=== PATIENT | female | born 1960 | race Caucasian/White ===

== ENCOUNTER 2022-07-05 14:33 | Outpatient (REF) | payer MEDICARE, SELFPAY ==
[2022-07-11 20:42] LABS: HPV mRNA E6/E7 rflx Not Detected (Not Detected)
== END 2022-07-05 14:34 | disposition home or self-care (01) ==
LOC: HO.LNP 14:33
PROVIDERS: Visit Provider Advanced Practice Midwife
DX: Z01.419 Encounter for gynecological examination (general) (routine) without abnormal findings (principal); Z11.51 Encounter for screening for human papillomavirus (HPV)
CPT/HCPCS: 87624; 88142

== ENCOUNTER 2022-08-21 09:31 | Outpatient (REF) | payer MEDICARE, SELFPAY | END 2022-08-21 09:32 | disposition home or self-care (01) | LOC: HO.LNP 09:31 | PROVIDERS: PCP Internal Medicine Medical Oncology; Visit Provider Advanced Practice Midwife | DX: N84.1 Polyp of cervix uteri (principal) | CPT/HCPCS: 57500; 88305 ==

== ENCOUNTER 2023-05-04 13:46 | Outpatient (AMB) | payer MEDICARE, SELFPAY ==
--- NOTE | 2023-05-04 13:47 | A.OFFVIS_ITS ---
Intake Intake Visit Reasons: LDCT Allergies No Known Allergies Allergy (Verified 08/21/22 10:05) HPI LDCT HPI Details Initial visit for this 63 former smoker with a 35PYH. Patient has been smoking since age 12 for 49 years at 1/2-1ppd. She quit in 2021. Stopped vape 2 weeks ago. . Denies marijuana use. Denies second hand smoke exposure. Denies exposure to chemicals or substances like asbestos. . Denies known family history of lung cancer. Reports personal history of left Breast cancer recently diagnosed 03/2023 - plan is to do radiation. Denies chest CT in last year. . Denies recent travel outside the [place]. Denies recent respiratory illness or recent hospitalization for respiratory issues. Reports testing positive for COVID. 11/2021 Admits receiving COVID Vaccine. x 2. . Denies fever, chills, new/worsening cough, hemoptysis, hoarseness or dysphagia. Denies significant chest pain, significant dyspnea or unintentional weight loss. Patient Lung Cancer Screening Questionnaire reviewed with patient by provider. . Shared Decision Making Completed. Patient meets criteria. Discussed in detail with patient, the risk vs benefit of LDCT screening. Patient consents to proceed with scan. Discussed and encouraged continued smoking cessation. FORMERLY [facility], [facility] Medical History (Updated 05/04/23 @ 14:05 by Melyssa Douglas PA-C) Breast cancer, left (~2022) Colon polyp COPD (chronic obstructive pulmonary disease) Hyperlipidemia Multiple sclerosis Personal history of nicotine dependence Surgical History (Updated 05/04/23 @ 14:05 by Melyssa Douglas PA-C) History of cervical biopsy History of colonoscopy History of left breast biopsy History of tubal ligation History of umbilical hernia repair Family History Maternal Aunt Diabetes Family/Other Diabetes Paternal Aunt High blood pressure Social History (Updated 05/04/23 @ 13:53 by Melyssa Douglas PA-C) Alcohol intake: current Alcohol intake frequency: holidays/special occasions only Patient Tobacco Use Status: Former Tobacco user Quit Date: quit cigarettes 2021, quit vape 03/2023 Years Smoked: (former smoker - onset 12yo, 1/2-1ppd x 49yrs, 35pyh -quit 2021) e-Cigarette/Vaping Use: Former Use Sexual orientation: Straight/Heterosexual Gender identity: Female Assessment & Plan Assessment & Plan (1) Personal history of nicotine dependence: Comment: (former smoker - onset 12yo, 1/2-1ppd x 49yrs, 35pyh - quit 2021) Code(s): Z87.891 - Personal history of nicotine dependence Plan: - SDM visit completed today in office. - Patient meets criteria for LDCT for lung cancer screening purposes and is asymptomatic. - Smoking cessation counseling offered. Patients can always call [phone]. - Will arrange for a LDCT scan of the chest for screening purposes at [facility]. - Risks, benefits, and alternatives were discussed in detail and the patient agrees to proceed. - Risks discussed include but are not limited to: radiation exposure, anxiety during testing and while awaiting results, false negatives, false positives and possibility of additional intervention such as further imaging or surgical procedures for benign disease. - Benefits are obviously detection of lung cancer at an early stage which can lead to improved outcomes. - Discussed the importance of screening program compliance with adherence to yearly LDCT scan as scheduled - or sooner interval scans for personalized screening regimen. - Discussed follow up plan. Our office will send a letter discussing results and if needed set up phone call and office visit based on CT findings. - Patient educated on results categorization and the management decisions for suspicious findings potentially found on the screening LDCT scan. Any patient with a Lung RADS score of 3 or 4 will be reviewed by a multidisciplinary team at [facility] to form a plan of action in regards to scan findings. - If further work up is warranted for a suspicious lung finding this will be followed by the Lung Cancer Screening program in conjunction with the Thoracic Surgery Department at [facility]. - A copy of the office note and LDCT will be sent to the patient's PCP - as well as documentation on any associated further plans of care. - Incidental findings on LDCT are the PCP's responsibility. These findings are indicated with an S finding on the LDCT Assessment. A note discussing the findings will be sent to the PCP who is then responsible for further management. - All questions answered.? Coding Level of Care Code Lung Cancer Screening G0296 Diagnoses Personal history of nicotine dependence Z87.891
== END 2023-05-04 14:19 | disposition home or self-care (01) ==
PROVIDERS: PCP Internal Medicine Medical Oncology; Visit Provider Physician Assistant Medical
DX: Z87.891 Personal history of nicotine dependence (principal)
CPT/HCPCS: G0296

== ENCOUNTER 2023-05-04 14:07 | Outpatient (REF) | payer MEDICARE, SELFPAY ==
--- NOTE | ~2023-05-04 | CT_ITS ---
EXAMINATION: LUNG CANCER SCREENING CT CHEST WITHOUT CONTRAST CLINICAL INFORMATION: Current smoker with 50 pack year history COMPARISON: None TECHNIQUE: Multidetector volumetric CT imaging of the chest was obtained noncontrast using low dose screening CT technique. Axial thin section 0.625 mm reformations in soft tissue and lung windows were obtained. Sagittal and coronal reformations were obtained. Axial MIP images were also created and reviewed. This CT examination was performed using dose optimization techniques as appropriate, variously including the following: *Automated exposure control *Adjustment of mA and/or kV according to patient size (this includes techniques or standardized protocols for targeted exams where dose is matched to indication/reason for exam; i.e. extremities or head) *Use of iterative reconstruction technique TOTAL EXAM DLP: 69.79 mGy-cm FINDINGS: PULMONARY NODULES (see alarcon images): No suspicious pulmonary nodules. Punctate calcified granuloma, right upper lobe. Intrapulmonary lymph node along the right major fissure. LUNGS / PLEURA: Minimal emphysema. Diffuse moderate bronchial wall thickening with scattered subsegmental endobronchial secretions. Pleuroparenchymal scarring versus subsegmental atelectasis along the mediastinal pleura in the middle lobe and lingula. Small right Bochdalek hernia. No pleural effusion or pneumothorax. MEDIASTINUM / MANASA: Heart normal in size without pericardial effusion. Great vessels normal caliber. No lymphadenopathy. Coronary calcifications present. Imaged thyroid gland unremarkable. CHEST WALL / AXILLA: Unremarkable. UPPER ABDOMEN: Included portions grossly unremarkable allowing for limitations in technique. OSSEOUS STRUCTURES: No acute or suspicious osseous abnormalities. CT/CT lung screening IMPRESSION: * No evidence of pulmonary malignancy. * Minimal emphysema. * Moderate diffuse bronchial wall thickening with scattered subsegmental endobronchial secretions. ASSESSMENT: Lung RADS category: 2. Benign appearance or behavior. Nodules with a very low likelihood of becoming a clinically active cancer due to size or lack of growth. Continue annual screening with low-dose CT in 12 months. Probability of malignancy less than 1%. RECOMMENDATION: Follow up low dose CT chest in 1 year.
== END 2023-05-04 14:08 | disposition home or self-care (01) ==
LOC: HO.CT 14:07
PROVIDERS: PCP Internal Medicine Medical Oncology; Visit Provider Physician Assistant Medical
DX: Z12.2 Encounter for screening for malignant neoplasm of respiratory organs (principal); Z87.891 Personal history of nicotine dependence
CPT/HCPCS: 71271; G0296

== ENCOUNTER 2024-05-07 09:40 | Outpatient (REF) | payer MEDICARE, SELFPAY ==
--- NOTE | ~2024-05-07 | CT_ITS ---
EXAMINATION: CT LOW-DOSE SCREENING CHEST WITHOUT CONTRAST CLINICAL INFORMATION: Personal history of nicotine dependence. Former smoker. The patient has a 50 pack-year history of smoking, having quit 2 years ago. COMPARISON: CT chest May 04, 2023. TECHNIQUE: Multidetector volumetric CT imaging of the chest is performed on a Siemens SOMATOM Definition scanner without contrast using low dose technique. Additional 2D coronal and sagittal reformatted images and axial 3D maximum intensity projection (MIP) images are generated on the CT workstation. This CT examination was performed using dose optimization techniques as appropriate, variously including the following: *Automated exposure control. *Adjustment of mA and/or kV according to patient size (this includes techniques or standardized protocols for targeted exams where dose is matched to indication/reason for exam; i.e. extremities or head). *Use of iterative reconstruction technique. TOTAL EXAM DLP: 71 mGy-cm. CTDIvol: 2.04 mGy. FINDINGS: PULMONARY NODULES: Some scattered tiny punctate granulomas are present along with some scattered noncalcified punctate nodules, none larger than 2 mm (see saved alarcon images). There is no new, increasing size or concerning nodules seen. LUNGS: Lungs bilaterally symmetrically expanded. There are mild diffuse emphysematous changes along with bronchial thickening. No effusion or pneumothorax. Central airways patent. MEDIASTINUM: No mediastinal, hilar or axillary adenopathy or free fluid collection. CORONARY ARTERY CALCIFICATION: None visualized on this study. THYROID GLAND: Unremarkable to the extent seen. CARDIOVASCULAR STRUCTURES: Aortic and heart size normal. No pericardial effusion. CHEST WALL/AXILLA: Unremarkable. UPPER ABDOMEN: Included portions of the solid organs in the upper abdomen unremarkable on noncontrast imaging. OSSEOUS STRUCTURES: No suspicious focal findings. CT/CT lung screening IMPRESSION: No findings suspicious for malignancy. ASSESSMENT: 1. Lung-RADS Category 2: Benign appearance or behavior of nodules. N/A. 2. Lung-RADS Category S: Negative. There are no clinically significant or potentially clinically significant findings not related to the lungs requiring urgent additional evaluation. RECOMMENDATION: Continued routine annual low-dose CT lung screening in 1 year is recommended. An order for CT CHEST LOW DOSE CANCER SCREENING ([id number]) can be placed. Electronically signed by: Gabriele Myers MD 06/16/2024 06:45 PM EDT
== END 2024-05-07 09:41 | disposition home or self-care (01) ==
LOC: HO.CT 09:40
PROVIDERS: PCP Internal Medicine Medical Oncology; Visit Provider Physician Assistant Medical
DX: Z12.2 Encounter for screening for malignant neoplasm of respiratory organs (principal); Z87.891 Personal history of nicotine dependence
CPT/HCPCS: 71271

== ENCOUNTER 2025-05-22 15:37 | Outpatient (REF) | payer MEDICARE, SELFPAY ==
--- NOTE | ~2025-05-22 | CT_ITS ---
CLINICAL HISTORY: Z87.891 - Personal history of nicotine dependence CT lung cancer screening (LDCT) Comparison: CT/[place]/SR - CT LUNG SCREENING - 05/07/24 10:19 EDT Technique: Axial CT images of the chest using low-dose technique. Referring provider counseled the patient on shared decision-making for LDCT screening. Additional counseling was provided on smoking cessation. Effective radiation dose total: DLP 51.2 mGycm, CTDIvol 1.6 mGy. Findings: Lung: No evidence of pneumonia or edema. Mild apical predominant emphysema. Scarring within the right upper lobe anteromedially. Coronary artery calcifications: No calcification Limited upper abdomen: Unremarkable Other: None Impression: 1. LungRADS 1: Negative exam. Continue annual screening with low dose Chest CT in 12 months. ##L1## Category 1: Normal; continue annual screening Category 2: Benign appearance or behavior, continue annual screening Category 3: Probably benign, [address] recommended Category 4A: Suspicious, [address] recommended; may consider PET/CT Category 4B: Suspicious, Additional diagnostics and/or tissue sampling recommended Category 4X: Suspicious, Additional diagnostics and/or tissue sampling recommended Category 0: Recalls (incomplete screen due to Incomplete coverage, Noise, Respiratory motion, Expiration, Obscured by acute abnormality) This document has been electronically signed by: Shaunna Boyce MD on 05/25/2025 13:30:11
--- OUTSIDE RECORDS SUMMARY | 2025-05-22 15:39 | XMS_ITS | Encounter Summary ---
Author Organization [facility] Address [address] [place] [address] Care Team Providers Care Cane Furniture Maker Name Role Phone Paulo Tate MD Primary Care Provider [phone] Encounter Details Date Type Department Care Team Description 06/25/2023 Social Work [facility] [address] [place] [address] Gasper Alaniz MSW Social History Tobacco Use Types Packs/Day Years Used Date Smoking Tobacco: Never Assessed Sex and Gender Information Value Date Recorded Sex Assigned at Not on file Gender Identity Not on file Sexual Orientation Not on file Job Start Date Occupation Industry Not on file Not on file Not on file documented as of this encounter Plan of Treatment Not on file documented as of this encounter Visit Diagnoses Not on filedocumented in this encounter Care Teams Cane Furniture Maker Relationship Specialty Start Date End Date Paulo Tate MD [address] [place] [address] [id number] PCP - General Oncology 06/14/23 documented as of this encounter
--- OUTSIDE RECORDS SUMMARY | 2025-05-22 15:39 | XMS_ITS ---
Author Name [facility] Organization Unknown Care Team Organization Name Specialty Phone Email Start Date End [facility] 05/20/2025
--- OUTSIDE RECORDS SUMMARY | 2025-05-22 15:39 | XMS_ITS | Clinical Summary ---
Author Organization [facility] Address [address] [place] [address] Phone Care Team Providers Care X Ray Technician Name Role Phone Paulo Tate MD Primary Care Provider [phone] Allergies Active Allergy Reactions Criticality Noted Date Comments Levonorgestrel-Ethinyl Estrad Unknown 2024 Mold Unknown 12/18/2024 Medications aspirin 81 mg EC tablet Take by mouth. Active cholecalciferol (VITAMIN D-3) 25 mcg (1,000 unit) capsule Take 1 capsule (1,000 Units total) by mouth. Active coenzyme Q-10 100 mg capsule Take 1 capsule (100 mg total) by mouth 1 (one) time each day. Active omega-3 acid ethyl esters (LOVAZA) 1 gram capsule Take 1 capsule (1 g total) by mouth 2 (two) times a day. Active magnesium citrate 100 mg capsule Take 1 capsule by mouth 3 (three) times a week. Active inhalational spacing device inhaler USE WITH INHALER 4 Active omega 6-nki-ohz-fish oil (Fish OiL) 1,000 (120-180) mg capsule Take 1 Capsule by mouth 2 times daily. Active ipratropium-albute roL (DUONEB) 0.5-2.5 mg/3 mL nebulizer solutionIndication s:Mild intermittent asthma, uncomplicated USE 1 VIAL IN NEBULIZER 4 TIMES DAILY - as needed for rescue (Max 30 doses per month) 375 mL 2 5 Active budesonide (PULMICORT) 0.5 mg/2 mL nebulizer solutionIndication s:Mild intermittent asthma, uncomplicated USE 1 VIAL IN NEBULIZER TWICE DAILY - Rinse Mouth After Treatment 60 each 11 5 Active formoterol (Perforomist) 20 mcg/2 mL nebulizer solutionIndication s:Mild intermittent asthma, uncomplicated USE 1 VIAL IN NEBULIZER TWICE DAILY - Morning and Evening 60 each 11 5 Active Active Problems Problem Noted Date Diagnosed Date DDD (degenerative disc disease), cervical 2023 HLD (hyperlipidemia) 01/25/2024 Mild intermittent asthma, uncomplicated 01/25/20 24 Multiple sclerosis ([facility] V24, [facility] V28) Obesity 01/25/2024 Primary cancer of upper inne r quadrant of left female breast ([facility] V24, [facility] V28) 05/01/2023 Overview (07/09/2024): Dr. Peraza surgeon, Dr. Rivers oncologist, radiologist [facility] Surgical History Surgery Date Site/Laterality Comments BREAST LUMPECTOMY Left PROCEDURE: HISTORICAL BREAST LUMPECTOMY TUBAL LIGATION PROCEDURE: HISTORICAL TUBAL LIGATION HERNIA REPAIR PROCEDURE: HISTORICAL HERNIA REPAIR/UMB OTHER SURGICAL HISTORY Right PROCEDURE: MO ANES FOREARM WRIST/HAND CAST APPL RMVL/REPAIR STEREOTACTIC CORE BIOPSY Medical History Medical History Date Comments Mild intermittent asthma, uncomplicated DX:Mild intermittent asthma, uncomplicated HLD (hyperlipidemia) DX:HLD (hyp erlipidemia) DDD (degenerative disc disea se), cervical DX:DDD (degenerative disc di sease), cervical Multiple sclerosis ([facility] V24, [facility] V28) DX:Multiple sclerosis (HCC) Primary cancer of upper inne r quadrant of left female breast ([facility] V24, [facility] V28) 05/2023 DX:Primary cancer of upper i nner quadrant of left female breast (HCC); COMMENT: Dr. Peraza surgeon, Dr. Rivers oncologist, radiologist [facility] Obesity DX:Obesity Social History Tobacco Use Types Packs/Day Years Used Date Smoking Tobacco: Former Smokeless Tobacco: Never Comments No Sex and Gender Information Value Date Recorded Sex Assigned at Female 11/06/2024 3:56 PM EST Legal Sex Female 11:11 AM EST Gender Identity Female 11/06/2024 3:55 PM EST Sexual Orientation Straight 11/06/2024 3: 56 PM EST Obstetrics History Para Term AB IAB SAB Ectopic Multiple Livin g Live Births 5 Last Filed Vital Signs Vital Sign Reading Time Taken Comments Blood Pressure 126/84 12/18/2024 9:04 AM EDT Pulse 82 12/18/2024 9:04 AM EDT Temperature 36.2 C (97.1 F) 12/18/2024 9:04 AM EDT Respiratory Rate 16 12/18/2024 9:04 AM EDT Oxygen Saturation 94% 12/18/2024 9:04 AM EDT Inhaled Oxygen Concentration - - Weight 101 kg (223 lb) 02/04/2025 12:59 PM EDT Height 165.1 cm (5' 5 ) 02/04/2025 12:59 PM EDT Body Mass Index 37.11 02/04/2025 12:59 PM EDT Plan of Treatment Upcoming Encounters Date Type Department Care Team (Late st Contact Info) Description 06/22/2025 9:45 AM EDT Office Visit Pulmonolgy - [place] [address] [facility] [address] [place] [id number] July Lopez, CELY [address] [facility] [address] [place] [address] 02/04/2026 1:00 PM EDT [facility]ointment [facility] [address] [place] [phone] Health Maintenance Due Date Last Done Comments DTaP,Tdap,and Td Vaccines (1 - Tdap) 01/23/1979 Pneumococcal Vaccine: 50+ Years (1 of 2 - PCV) 01/23/1979 Zoster Vaccines (1 of 2) 01/23/1979 Cervical Cancer Screening: P ap Smear 01/23/1981 RSV Immunization Adult Patients (1 - Risk 60-74 years 1-dose series) 2020 COVID-19 Vaccine (3 - Pfizer risk series) 08/08/2021 07/11/2021, 06/18/2021 Cholesterol Screening (Lipid Panel) 10/30/2023 Colorectal Cancer Screening: Colonoscopy 10/30/2023 Hepatitis C Screening 10/30/2023 Social Influencers of Health Screening 10/30/2023 Medicare Annual Wellness Visit 11/21/2023 11/21/2022 Depression Screening 10/01/2024 Falls Risk Assessment 01/23/2025 Influenza Vaccine (#1) 2025 Breast Cancer Screening 02/04/2027 02/05/20, 03/28/2023, 05/15/2018 Osteoporosis Screening (Bone Density Screening) 07/10/2033 07/10/2023 HIB Vaccines Aged Out No longer eligi ble based on patient's age to complete this topic HPV Vaccines Aged Out No longer eligi ble based on patient's age to complete this topic Hepatitis A Vaccines Aged Out No long er eligible based on patient's age to complete this topic Hepatitis B Vaccines Aged Out No long er eligible based on patient's age to complete this topic IPV Vaccines Aged Out No longer eligi ble based on patient's age to complete this topic MMR Vaccines Aged Out No longer eligi ble based on patient's age to complete this topic Meningococcal ACWY Vaccine Aged Out N o longer eligible based on patient's age to complete this topic Meningococcal B Vaccine Aged Out No l onger eligible based on patient's age to complete this topic RSV Immunization Patients Under 20 months Aged Out No longer eligible b ased on patient's age to complete this topic Varicella Vaccines Aged Out No longer eligible based on patient's age to complete this topic Procedures Procedure Name Priority Date/Time Associated Diagnosis Comments MG MAMMO DIGITAL DIAGNOSTIC W MARK BILAT Routine 02/04/2025 1:25 PM EDT Cancer of breast (CMS/HCC V24, CMS/[facility] V28) [facility] DEXA AXIAL SKELETON Routine 07/10/2023 12:04 PM EDT Encounter for screening for osteoporosis from Last 3 Months or Most Recently Relevant to Health Maintenance Results * MG Mammo Digital Diagnostic w Mark bilat (02/04/2025 1:25 PM EDT) Anatomical Region Laterality Modality Breast Bilateral Mammography 02/04/2025 1:26 PM EDT Impressions 02/04/2025 1:29 PM EDT No mammographic evidence of new or recurrent malignancy. Interval left lumpectomy. Recommend diagnostic bilateral mammogram in one year. ASSESSMENT: BI-RADS 2: BENIGN RECOMMENDATION(S): 1: Follow-up diagnostic mammogram BILATERAL in 1 year. [facility] location[facility] [address], [address] -------- FINAL REPORT -------- Dictated By: Grupo Mcnulty Dictated Date: 02/04/2025 13:26 ET Assigned Physician: Grupo Mcnulty Reviewed and Electronically Signed By: Grupo Mcnulty Signed Date: 02/04/2025 13:29 ET Workstation ID: [id number] Transcribed By: Self Edit Transcribed Date: 02/04/2025 13:26 ET Narrative 02/04/2025 1:29 PM EDT EXAM: DIAGNOSTIC MAMMOGRAPHY, BILATERAL HISTORY: Personal history of left breast cancer. Lumpectomy 05/29/23 for left breast cancer COMPARISON: 03/28/23, 05/15/18 TECHNIQUE: Synthesized CC and MLO projections of each breast. Tomosynthesis of each breast in the CC and MLO projections. ADDITIONAL IMAGING: Spot magnified views of the lumpectomy region in multiple projections Computer-aided detection was employed with the Faraday AI 3-D. TISSUE DENSITY: There are scattered areas of fibroglandular density. (BI-RADS category B) FINDINGS: RIGHT BREAST: No suspicious mass. No suspicious calcification. No distortion. Stable low density focal asymmetry in the 10 o'clock position 7 cm from the right nipple. LEFT BREAST: Interval left lumpectomy. Scar marker present. There is trabecular thickening. There are surgical clips in place. No additional suspicious left breast findings Procedure Note Grupo Mcnulty MD - 02/04/2025 EXAM: DIAGNOSTIC MAMMOGRAPHY, BILATERAL HISTORY: Personal history of left breast cancer. Lumpectomy 05/29/23 forleft breast cancer COMPARISON: 03/28/23, 05/15/18 TECHNIQUE: Synthesized CC and MLO projections of each breast.Tomosynthesis of each breast in the CC and MLO projections. ADDITIONAL IMAGING: Spot magnified views of the lumpectomy region inmultiple projections Computer-aided detection was employed with the Faraday AI 3-D. TISSUE DENSITY: There are scattered areas of fibroglandular density.(BI-RADS category B) FINDINGS: RIGHT BREAST: No suspicious mass. No suspicious calcification. No distortion. Stablelow density focal asymmetry in the 10 o'clock position 7 cm from the rightnipple. LEFT BREAST: Interval left lumpectomy. Scar marker present. There is trabecularthickening. There are surgical clips in place. No additional suspiciousleft breast findings IMPRESSION: No mammographic evidence of new or recurrent malignancy. Interval left lumpectomy. Recommend diagnostic bilateral mammogram in one year. ASSESSMENT: BI-RADS 2: BENIGN RECOMMENDATION(S): 1: Follow-up diagnostic mammogram BILATERAL in 1 year. Mamm[facility] location: [facility] [address] [place], [address] -------- FINAL REPORT -------- Dictated By: Grupo Mcnulty Dictated Date: 02/04/2025 13:26 ET Assigned Physician: Grupo Mcnulty Reviewed and Electronically Signed By: Grupo Mcnulty Signed Date: 02/04/2025 13:29 ET Workstation ID: [id number] Transcribed By: Self Edit Transcribed Date: 02/04/2025 13:26 ET us Paulo Tate MD IMG BI PROCEDURES Final Result * TA DEXA AXIAL SKELETON (07/10/2023 12:04 PM EDT) Anatomical Region Laterality Modality Mammography 07/09/2023 1:08 PM EDT Narrative 07/10/2023 12:04 PM EDT [facility] Diagnostic Imaging Department [address] [place] [address] Patient: MARC FERRARI D.O.B./Age/Sex: 1960 - 63 - F Unit#: [id number] [facility]Ordering Site: MAMDEX[facility]X/SPMAM Ordering Physician: ELEAZAR RIVERS MD Ta Dexa Axial Skeleton - 07/09/23 [id number] Report Status:Signed HISTORY: The patient is a 63-year-old postmenopausal female with clinical concern for metabolic bone disease. FINDINGS: Dual energy x-ray absorptiometry of the lumbar spine and femurs is performed. The mean bone mineral density at L1-L4 is 0.973 gm/cm2 which is 82% of that of young normals and 85% of that of age matched controls. This yields a T-score of -1.7 and a Z-score of -0.4 which is diagnostic of osteopenia. The mean bone mineral density of the femurs bilaterally is 0.819 gm/cm2 which is 81% of that of young normals and 84% of that of age matched controls. This yields a T-score of -1.5 and a Z-score of -1.2 which is diagnostic of osteopenia. The T-score of the right femoral neck is -2.2 and that of the left femoral neck is -2.1 which is diagnostic of osteopenia. IMPRESSION: 1. Osteopenia. 2. FRAX analysis yields a 10-year probability of major osteoporotic fracture of 10.2% and a 10-year probability of hip fracture of 1.6%. Code 20826 Dictating Physician: VALERIE CORADO MD Electronically Signed by: VALERIE CORADO MD Dic Date/Time: 07/10/23 120 Sign date/Time: 07/10/231203 Procedure Note Valerie Corado MD - 11/06/2023 [facility] Diagnostic Imaging Department [address] [place] [address] Patient: MARC FERRARI /Age/Sex: 1960 - 63 - F Unit#: [id number] Location/Status: [facility]/REG CLI Mnemonic/Ordering Site: MAMDEXAAX/SPMAM Ordering Physician: ELEAZAR RIVERS MD Ta Dexa Axial Skeleton - 07/09/23 - [id number] Report Status:Signed HISTORY: The patient is a 63-year-old postmenopausal female withclinical concern for metabolic bone disease. FINDINGS: Dual energy x-ray absorptiometry of the lumbar spine and femursis performed. The mean bone mineral density at L1-L4 is 0.973 gm/cm2 which is82% of that of young normals and 85% of that of age matched controls. Thisyields a T-score of -1.7 and a Z-score of -0.4 which is diagnostic of osteopenia. The mean bone mineral density of the femurs bilaterally is 0.819 gm/fi2diaus is 81% of that of young normals and 84% of that of age matched controls.This yields a T-score of -1.5 and a Z-score of -1.2 which is diagnostic of osteopenia. The T-score of the right femoral neck is -2.2 and that of theleft femoral neck is -2.1 which is diagnostic of osteopenia. IMPRESSION: 1. Osteopenia. 2. FRAX analysis yields a 10-year probability of major osteoporoticfracture of 10.2% and a 10-year probability of hip fracture of 1.6%. Code 77435 Dictating Physician: VALERIE CORADO MD Electronically Signed by: VALERIE CORADO MD [facility] Date/Time: 07/10/23 1203 Sign date/Time: 07/10/23 1204 Eleazar Rivers MD IMG BI PROCEDURES Final Res ult from Last 3 Months or Most Recently Relevant to Health Maintenance Insurance MEDICARE Care Teams X Ray Technician Relationship Specialty Start Date End Date Paulo Tate MD [address] [place] [address] PCP - General 06/14/23
--- OUTSIDE RECORDS SUMMARY | 2025-05-22 15:40 | XMS_ITS | Patient Health Record ---
Author Organization [facility] Address [address] [place] [phone] Care Team Providers Care Upper Stitcher Name Role Phone Lea FIORE, Paulo Primary Care Provider Unavailab Juan Zhang Jr Unavailable [phone] Reason For Referral No Information Plan Of Treatment No Information Insurance Providers Payer Name Payer Address Payer Phone Subscriber Number Group Number Insured Name Patient Relationship to Insured Coverage Start Date Coverage End Date MEDICARE OF [facility] [address] [place], [place] [id number] [phone] [id number] MARC HUNTER Self - patient is the insured Medical (General) History Medical History History ICD Code Colonoscopy,2005 and 2001, aicha Melendez ubular adenoma Multiple sclerosis diagnosed in 2003 Tremors Asthma Ecchymosis with easy bruisability Degenerative joint disease involving the back and neck Surgical History Surgery Date(Month/Year) Umbilical hernia repair Tubal ligation
== END 2025-05-22 15:38 | disposition home or self-care (01) ==
LOC: HO.CT 15:37
PROVIDERS: PCP Internal Medicine Medical Oncology; Visit Provider Physician Assistant Medical
DX: Z12.2 Encounter for screening for malignant neoplasm of respiratory organs (principal); Z87.891 Personal history of nicotine dependence
CPT/HCPCS: 71271

== ENCOUNTER → 2025-05-22 15:39 | Outpatient (BNV) | payer MEDICARE, SELFPAY | PROVIDERS: PCP Internal Medicine Medical Oncology; Visit Provider Radiology Diagnostic Radiology | DX: Z12.2 Encounter for screening for malignant neoplasm of respiratory organs (principal); Z87.891 Personal history of nicotine dependence | CPT/HCPCS: 71271 ==